=== PATIENT | male | born 1955 | race Hispanic/Latino ===

== ENCOUNTER 2018-03-01 23:43 | Emergency (ER) | payer BC ==
[2018-03-01] MEDS ORDERED: NACL 0.9% 1000 ML 1,000 ML IV ONE (23:49)
[2018-03-02 00:34] LABS: Basophils % (Auto) 0.2 % (0.0-1.8); Eosinophils # (Auto) 0.2 K/mm3 (0.0-0.4); Eosinophils % (Auto) 1.4 % (0.0-4.3); Hematocrit 43.5 % (35.5-45.6); Hemoglobin 14.6 gm/dl (11.8-15.2); Lymphocytes # (Auto) 2.3 K/mm3 (1.2-5.4); Lymphocytes % (Auto) 19.2 % (13.4-35.0); Mean Corpuscular HGB Conc 34 % (32-34); Mean Corpuscular Hemoglobin 33 pg (28-32); Mean Corpuscular Volume 99 fl (84-94); Monocytes # (Auto) 0.9 K/mm3 (0.0-0.8); Monocytes % (Auto) 7.8 % (0.0-7.3); Platelet Count 182 K/mm3 (140-440); Red Blood Count 4.39 M/mm3 (3.65-5.03); Red Cell Distribution Width 13.7 % (13.2-15.2)
[2018-03-02] MEDS ORDERED: TORADOL IV ONE (00:42)
[2018-03-02] MEDS ORDERED: TORADOL ONE (00:48)
[2018-03-02 00:53] LABS: Alanine Aminotransferase 33 units/L (7-56); Albumin 3.9 g/dL (3.9-5); BUN/Creatinine Ratio 10; Blood Urea Nitrogen 12 mg/dL (9-20); Calcium 8.4 mg/dL (8.4-10.2); Hemolysis Index 5
--- NOTE | 2018-03-02 01:00 | Emergency Department Report ---
ED Fall HPI - General Chief Complaint: Fall Stated Complaint: UNKNOWN Time Seen by Provider: 03/01/18 23:46 Source: EMS Mode of arrival: Stretcher Limitations: Other (alcohol intoxication) - History of Present Illness Initial Comments: 62 yo Male with a past medical history of hypertension presents to the hospital with acute alcohol intoxication and fall. Patient denies that he drinks alcohol daily. He apparently has been drinking alcohol all day since 4 AM. He fell off a 5 foot retaining wall. He denies LOC. He presents to the hospital via EMS with c-collar and backboard complaining of back pain. Patient is noted to be hypotensive and route received 1 L of normal saline prior to arrival. - Related Data Allergies Allergy/AdvReac Type Severity Reaction Status Date / Time No Known Allergies Allergy Verified 03/02/18 00:59 ED Review of Systems ROS: Stated complaint: UNKNOWN Other details as noted in HPI Comment: All other systems reviewed and negative ED Past Medical Hx - Past Medical History Previous Medical History?: Yes Hx Hypertension: Yes - Surgical History Past Surgical History?: No - Social History Smoking Status: Unknown if ever smoked Substance Use Type: None ED Physical Exam - General Limitations: Physical Limitation - Other Other exam information: General: No limitations, patient is alert in no acute distress Head exam: Atraumatic, normocephalic Eyes exam: Normal appearance, pupils equal reactive to light, extraocular movements intact ENT: Moist mucous membrane, normal oropharynx Neck exam: Normal inspection, full range of motion, no meningismus nontender. C -collar remained in place since patient is acutely intoxicated Respiratory exam: Clear to auscultation bilateral, no wheezes, rales, crackles Cardiovascular: Normal rate and rhythm Abdomen: Soft, nondistended, and nontender, with normal bowel sounds, no rebound, or guarding Extremity: Full range of motion normal inspection no deformity Back: Normal Inspection, full range of motion, no tenderness on exam active back for removal Neurologic: Alert, oriented x3, cranial nerves intact, no motor or sensory deficit Psychiatric: normal affect, normal mood Skin: Warm, dry, intact ED Course Vital Signs 03/01/18 03/01/18 03/01/18 23:24 23:30 23:46 Temperature Pulse Rate Respiratory Rate Blood Pressure 93/64 88/53 O2 Sat by Pulse 93 93 82 L Oximetry 03/02/18 03/02/18 03/02/18 00:00 00:02 00:16 Temperature 99.0 F Pulse Rate 90 Respiratory 18 Rate Blood Pressure 89/59 89/59 88/53 O2 Sat by Pulse 96 98 98 Oximetry 03/02/18 03/02/18 03/02/18 00:30 00:46 00:50 Temperature Pulse Rate Respiratory 20 Rate Blood Pressure 109/68 109/68 O2 Sat by Pulse 99 99 Oximetry 03/02/18 01:00 Temperature Pulse Rate Respiratory Rate Blood Pressure 112/77 O2 Sat by Pulse 95 Oximetry ED Medical Decision Making - Lab Data Result diagrams: 03/02/18 00:13 03/02/18 00:13 Lab Results 03/01/18 03/01/18 03/02/18 Range/Units Unknown Unknown 00:13 WBC 11.9 H (4.5-11.0) K/mm3 RBC 4.39 (3.65-5.03) M/mm3 Hgb 14.6 (11.8-15.2) gm/dl Hct 43.5 (35.5-45.6) % MCV 99 H (84-94) fl MCH 33 H (28-32) pg MCHC 34 (32-34) % RDW 13.7 (13.2-15.2) % Plt Count 182 (140-440) K/mm3 Lymph % (Auto) 19.2 (13.4-35.0) % Meeker % (Auto) 7.8 H (0.0-7.3) % Eos % (Auto) 1.4 (0.0-4.3) % Baso % (Auto) 0.2 (0.0-1.8) % Lymph # 2.3 (1.2-5.4) K/mm3 Meeker # 0.9 H (0.0-0.8) K/mm3 Eos # 0.2 (0.0-0.4) K/mm3 Baso # 0.0 (0.0-0.1) K/mm3 Seg Neutrophils % 71.4 H (40.0-70.0) % Seg Neutrophils # 8.5 H (1.8-7.7) K/mm3 Sodium (137-145) mmol/L Potassium (3.6-5.0) mmol/L Chloride (98-107) mmol/L Carbon Dioxide (22-30) mmol/L Anion Gap mmol/L BUN (9-20) mg/dL Creatinine (0.8-1.5) mg/dL Estimated GFR ml/min BUN/Creatinine Ratio % Glucose (75-100) mg/dL Calcium (8.4-10.2) mg/dL Magnesium (1.7-2.3) mg/dL Total Bilirubin (0.1-1.2) mg/dL AST (5-40) units/L ALT (7-56) units/L Alkaline Phosphatase (35-129) units/L Total Protein (6.3-8.2) g/dL Albumin (3.9-5) g/dL Albumin/Globulin Ratio % Urine Color Straw (Yellow) Urine Turbidity Clear (Clear) Urine pH 5.0 (5.0-7.0) Ur Specific Raymond 1.020 (1.003-1.030) Urine Protein <15 mg/dl (Negative) mg/dL Urine Glucose (UA) Neg (Negative) mg/dL Urine Ketones Neg (Negative) mg/dL Urine Blood Neg (Negative) Urine Nitrite Neg (Negative) Urine Bilirubin Neg (Negative) Urine Urobilinogen < 2.0 (<2.0) mg/dL Ur Leukocyte Esterase Neg (Negative) Urine WBC (Auto) < 1.0 (0.0-6.0) /HPF Urine RBC (Auto) < 1.0 (0.0-6.0) /HPF Urine Mucus Few /HPF Urine Opiates Screen Presumptive negative Urine Methadone Screen Presumptive negative Ur Barbiturates Screen Presumptive negative Ur Phencyclidine Scrn Presumptive negative Ur Amphetamines Screen Presumptive negative U Benzodiazepines Scrn Presumptive negative Urine Cocaine Screen Presumptive negative U Marijuana (THC) Screen Presumptive negative Drugs of Abuse Note Disclamer Plasma/Serum Alcohol (0-0.07) % 03/02/18 03/02/18 03/02/18 Range/Units 00:13 00:13 00:13 WBC (4.5-11.0) K/mm3 RBC (3.65-5.03) M/mm3 Hgb (11.8-15.2) gm/dl Hct (35.5-45.6) % MCV (84-94) fl MCH (28-32) pg MCHC (32-34) % RDW (13.2-15.2) % Plt Count (140-440) K/mm3 Lymph % (Auto) (13.4-35.0) % Meeker % (Auto) (0.0-7.3) % Eos % (Auto) (0.0-4.3) % Baso % (Auto) (0.0-1.8) % Lymph # (1.2-5.4) K/mm3 Meeker # (0.0-0.8) K/mm3 Eos # (0.0-0.4) K/mm3 Baso # (0.0-0.1) K/mm3 Seg Neutrophils % (40.0-70.0) % Seg Neutrophils # (1.8-7.7) K/mm3 Sodium 146 H (137-145) mmol/L Potassium 4.3 (3.6-5.0) mmol/L Chloride 110.0 H (98-107) mmol/L Carbon Dioxide 22 (22-30) mmol/L Anion Gap 18 mmol/L BUN 12 (9-20) mg/dL Creatinine 1.2 (0.8-1.5) mg/dL Estimated GFR > 60 ml/min BUN/Creatinine Ratio 10 % Glucose 99 (75-100) mg/dL Calcium 8.4 (8.4-10.2) mg/dL Magnesium 2.30 (1.7-2.3) mg/dL Total Bilirubin 0.20 (0.1-1.2) mg/dL AST 32 (5-40) units/L ALT 33 (7-56) units/L Alkaline Phosphatase 56 (35-129) units/L Total Protein 5.8 L (6.3-8.2) g/dL Albumin 3.9 (3.9-5) g/dL Albumin/Globulin Ratio 2.1 % Urine Color (Yellow) Urine Turbidity (Clear) Urine pH (5.0-7.0) Ur Specific Raymond (1.003-1.030) Urine Protein (Negative) mg/dL Urine Glucose (UA) (Negative) mg/dL Urine Ketones (Negative) mg/dL Urine Blood (Negative) Urine Nitrite (Negative) Urine Bilirubin (Negative) Urine Urobilinogen (<2.0) mg/dL Ur Leukocyte Esterase (Negative) Urine WBC (Auto) (0.0-6.0) /HPF Urine RBC (Auto) (0.0-6.0) /HPF Urine Mucus /HPF Urine Opiates Screen Urine Methadone Screen Ur Barbiturates Screen Ur Phencyclidine Scrn Ur Amphetamines Screen U Benzodiazepines Scrn Urine Cocaine Screen U Marijuana (THC) Screen Drugs of Abuse Note Plasma/Serum Alcohol 0.32 H (0-0.07) % - Radiology Data Radiology results: report reviewed CT head: No acute findings CT cervical spine no acute findings CT abdomen and pelvis with IV contrast no acute findings. Fatty infiltration of the liver. Bilateral lower lung atelectasis Chest x-ray: Normal - Medical Decision Making At 6:15 AM I was informed that patient eloped earlier today. He signed a AMA form and was discharged at 344. His is here and took him home. Initial low bp improved prior to leaving took him home - Differential Diagnosis fracture, ICH, alcohol intoxication Critical Care Time: No Critical care attestation.: If time is entered above; I have spent that time in minutes in the direct care of this critically ill patient, excluding procedure time. ED Disposition Clinical Impression: Alcohol intoxication, Fall Disposition: [id number] LEFT AGAINST MED ADVICE Is pt being admited?: No Condition: Stable Time of Disposition: 06:24 (ama at 3:44)
--- NOTE | 2018-03-02 01:31 | Cat Scan Report ---
FINAL REPORT PROCEDURE: CT HEAD/BRAIN WO CON TECHNIQUE: Computerized tomography of the head was performed without contrast material. HISTORY: fall 5 feet, etoh intox COMPARISON: No prior studies are available for comparison. FINDINGS: Skull and scalp: Normal. Paranasal sinuses: Normal. Ventricles and subarachnoid spaces: Normal. Cerebrum: No evidence of hemorrhage, acute infarction or mass . Cerebellum and brainstem: No evidence of hemorrhage, acute infarction or mass. Vasculature: Normal. Comments: None. IMPRESSION: There is no evidence of an acute intracranial process.
--- NOTE | 2018-03-02 01:55 | Cat Scan Report ---
FINAL REPORT PROCEDURE: CT ABDOMEN PELVIS W CON TECHNIQUE: Computerized axial tomography of the abdomen and pelvis was performed after the IV injection of iodinated nonionic contrast. HISTORY: fall, 5 feet, back pain, hypotension, etoh COMPARISON: No prior studies are available for comparison. FINDINGS: Visualized lower thorax: Mild atelectasis bilateral lower lungs.. Liver: There is fatty infiltration of the liver. Spleen: Normal size and attenuation. Gallbladder and biliary system: Normal. Pancreas: Normal. Adrenals: Normal. Kidneys: Both kidneys have normal size. No hydronephrosis. No renal stones or masses. GI tract: The stomach is normal. The small bowel has a normal caliber. The appendix is normal. There is moderate diverticular change throughout the colon. No inflammatory process.. Lymph nodes and mesentery: Normal. Vasculature: Moderate atherosclerosis of the aorta and branching vessels. Bladder: The urinary bladder is moderately distended.. Reproductive organs: The prostate gland is slightly enlarged.. Peritoneum: No free fluid. Musculoskeletal structures: There is moderate degenerative changes of the spine.. Other: None. IMPRESSION: There is no evidence of intestinal or urinary tract obstruction. No ileus or enteritis. The appendix is normal. Moderate diverticulosis of the colon. There is fatty infiltration of the liver. Bilateral lower lung atelectasis is noted.
--- NOTE | 2018-03-02 02:00 | Cat Scan Report ---
FINAL REPORT PROCEDURE: CT CERVICAL SPINE WO CON TECHNIQUE: Computerized tomography of the cervical spine was performed from the skull base to T1 without contrast material. HISTORY: fall 5 feet, etoh intox COMPARISON: No prior studies are available for comparison. FINDINGS: The alignment of the vertebral segments is normal. The heights of the vertebral bodies are maintained. There is moderate loss of disc space height at the C4-5, C5-6 and C6-7 levels. Moderate spur formation off the vertebral bodies is identified at all levels. The spinal canal is adequate at all levels. There is no evidence of acute fracture or dislocation of the cervical spine. IMPRESSION: There is no evidence of an acute fracture or dislocation of the cervical spine. Moderate cervical spondylosis and degenerative disc changes..
[2018-03-02 02:55] LABS: Bilirubin,Urine NEG (Negative); Blood,Urine NEG (Negative); Color,Urine Straw (Yellow); Mucus,Urine FEW /HPF; Protein,Urine <15 mg/dL mg/dL (Negative); RBC,Urine < 1.0 /HPF (0.0-6.0); Urobilinogen,Urine < 2.0 mg/dL (<2.0); WBC,Urine < 1.0 /HPF (0.0-6.0)
[2018-03-02 02:56] LABS: Amphetamine Screen,Urine PRESUMPTIVE NEGATIVE; Benzodiazepines Screen,Urine PRESUMPTIVE NEGATIVE; Cannabinoid Screen,Urine PRESUMPTIVE NEGATIVE; Cocaine Screen,Urine PRESUMPTIVE NEGATIVE; Methadone Screen,Urine PRESUMPTIVE NEGATIVE; Opiate Screen,Urine PRESUMPTIVE NEGATIVE
--- NOTE | 2018-03-02 03:07 | XRay Report ---
FINAL REPORT PROCEDURE: XR CHEST 1V AP TECHNIQUE: Chest radiograph anteroposterior view. CPT 38553 HISTORY: fall, alcohol intox, hypotension COMPARISON: No prior studies are available for comparison. FINDINGS: Heart: Normal. Mediastinum/Vessels: Normal. Lungs/Pleural space: Normal. Bony thorax: No acute osseous abnormality. Life support devices: None. IMPRESSION: No acute cardiopulmonary abnormality.
[2018-03-02 03:44] VITALS: BP 112/77
== END 2018-03-02 03:44 | disposition left against medical advice (07) ==
LOC: ED 23:43
DX: F10.129 Alcohol abuse with intoxication, unspecified (principal); I10 Essential (primary) hypertension; K76.0 Fatty (change of) liver, not elsewhere classified; W17.89XA Other fall from one level to another, initial encounter; Y93.89 Activity, other specified; Y92.89 Other specified places as the place of occurrence of the external cause; Y99.8 Other external cause status
CPT/HCPCS: 36415; 70450; 71045; 72125; 74177; 80053; 80307; 81001; 83735; 85025; 96361; 96374; 99285; G0480; J1885; Q9967; 80320